=== PATIENT | male | born 1945 ===

== ENCOUNTER 2020-02-01 19:14 | Outpatient (REF) | payer OTHER, MEDICAID, SELFPAY ==
[2020-02-01 19:44] LABS: ALT 67 U/L (16-63); CREATININE 1.28 mg/dL (0.70-1.30); Calculated LDL 55 mg/dL (<100); Cholesterol 138 mg/dL (<200); Estimated GFR 55.24 (mL/min/1.73m2); Glucose 207 mg/dL (74-106); HDL Cholesterol 24 mg/dL (40-60); Triglyceride 297 mg/dL (<150)
[2020-02-01 19:57] LABS: Creatine Kinase 58 U/L (39-308)
== END 2020-02-01 19:34 ==
LOC: NCHCN 19:14
PROVIDERS: PCP Internal Medicine; Visit Provider Internal Medicine
DX: I25.5 Ischemic cardiomyopathy (principal); E11.9 Type 2 diabetes mellitus without complications; E78.1 Pure hyperglyceridemia; I10 Essential (primary) hypertension; I21.4 Non-ST elevation (NSTEMI) myocardial infarction
CPT/HCPCS: 80061; 82550; 82947; 82565; 84460

== ENCOUNTER 2021-04-07 16:09 | Outpatient (REF) | payer OTHER, MEDICAID, SELFPAY | END 2021-04-07 16:10 | disposition home or self-care (01) | LOC: NCHCN 16:09 | PROVIDERS: PCP Internal Medicine; Visit Provider Internal Medicine | DX: L08.9 Local infection of the skin and subcutaneous tissue, unspecified (principal); L03.113 Cellulitis of right upper limb; E11.9 Type 2 diabetes mellitus without complications | CPT/HCPCS: 87070; 87205 ==